=== PATIENT | male | born 1990 | race Hispanic/Latino ===

== ENCOUNTER 2016-06-01 18:44 | Emergency (ER) | payer OTHER ==
[2016-06-01 19:40] VITALS: BP 138/97; PULSE 105; RESP 16; TEMP 97.3; O2SAT 100
[2016-06-01] MEDS ORDERED: Sodium Chloride 0.9% 1,000 ML IV STA (20:14)
--- NOTE | 2016-06-01 20:23 | ED PDOC ---
Upper Extremity Pain/Injury Time Seen by Provider: 06/01/16 19:50 Chief Complaint (Nursing): Upper Extremity Problem/Injury History Per: Patient History/Exam Limitations: no limitations Onset/Duration Of Symptoms: Hrs ( prior to arrival ) Current Symptoms Are (Timing): Still Present Additional Complaint(s): Kashmir Berg is a 26 year old male, with no previous medical history, who presents to the ED with complaints of right neck pain which started prior to arrival. 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 Pt was holding the dumbbells and turned only his neck to the left. Pt reports upon turning his neck he heard a pop on the right side of his neck which caused pain to shoot up his neck and to the top of his head. Pt states at the time of the incident to experiencing chest pain, numbness to the tongue and nose, light headed and tired. Pt states symptoms lasted for one hour. Pt states symptoms are now resolved. Pt states to only feeling light headed at the moment. Pt denies any numbness, tingling, weakness or chest pain. Of note, pt states to experiencing similar symptoms in the past which diagnosed as a pinched nerve. PMD: none provided Past Medical History Reviewed: Historical Data, Nursing Documentation, Vital Signs Vital Signs: Last Vital Signs Temp 97.3 F L 06/01/16 19:35 Pulse 105 H 06/01/16 19:35 Resp 16 06/01/16 19:35 BP 138/97 H 06/01/16 19:35 Pulse Ox 100 06/01/16 19:35 - Medical History PMH: No Chronic Diseases - Family History Family History: States: Unknown Family Hx - Allergies Allergies/Adverse Reactions: Allergies Allergy/AdvReac Type Severity Reaction Status Date / Time No Known Allergies Allergy Verified 06/01/16 20:13 Review of Systems ROS Statement: Except As Marked, All Systems Reviewed And Found Negative Constitutional: Positive for: Other (tired ) Musculoskeletal: Positive for: Neck Pain (right sided radiating to the top of the head ) Neurological: Positive for: Numbness (tongue and nose ), Other (light headed) Physical Exam - Reviewed Nursing Documentation Reviewed: Yes Vital Signs Reviewed: Yes - Physical Exam Appears: Positive for: Well, Non-toxic, No Acute Distress Head Exam: Positive for: ATRAUMATIC, NORMAL INSPECTION, NORMOCEPHALIC Skin: Positive for: Normal Color, Warm, DRY Eye Exam: Positive for: Normal appearance, EOMI, PERRL. Negative for: Nystagmus ENT: Positive for: Normal ENT Inspection Neck: Positive for: Normal, Painless ROM, Supple Cardiovascular/Chest: Positive for: Regular Rate, Rhythm Respiratory: Positive for: CNT, Normal Breath Sounds Gastrointestinal/Abdominal: Positive for: Normal Exam, Bowel Sounds, Soft Back: Positive for: Normal Inspection Extremity: Positive for: Normal ROM, Capillary Refill (< 2 seconds ), Other (5/ 5 strength in all extremities. light touch senses intact to all nerver distributions in the right hand.). 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 Negative for: Motor/Sensory Deficits , Facial Droop - Laboratory Results Result Diagrams: 06/01/16 20:32 06/01/16 20:32 - ECG O2 Sat by Pulse Oximetry: 100 (RA) Pulse Ox Interpretation: Normal Medical Decision Making Medical Decision Making: Initial Impression: neck pain differentials include herniated disc, muscle sprain, carotid artery dissection Initial Plan: * CT angio head * CT angio neck * labs * IV NS 1,000 ml at 1,000 ml/hr * reevaluation EXAM: CT Angiography Neck With Intravenous Contrast. CLINICAL HISTORY: 26 years old, male; Signs and symptoms; Headache and numbness and other: Rt neck pain, light headed; Additional info: Sudden right neck shooting pain and numbness face. Sent ed physician documentation with requests TECHNIQUE: Axial computed tomographic angiography images of the neck with intravenous contrast using CT angiography protocol. This CT exam was performed using one or more of the following dose reduction techniques: automated exposure control, adjustment of the mA and/or kV according to patient size, and/or use of iterative reconstruction technique. MIP reconstructed images were created and reviewed. Coronal and sagittal reformatted images were created and reviewed. CONTRAST: 80 mL of [id number] administered intravenously. COMPARISON: No relevant prior studies available. FINDINGS: VASCULATURE: Right common carotid artery: Unremarkable. No significant stenosis. No dissection or occlusion. Right internal carotid artery: Unremarkable. Extracranial segment is patent with no significant stenosis. No dissection or occlusion. Right external carotid artery: Unremarkable. No occlusion. Right vertebral artery: Unremarkable. No significant stenosis. No dissection or occlusion. Left common carotid artery: Unremarkable. No significant stenosis. No dissection or occlusion. Left internal carotid artery: Unremarkable. Extracranial segment is patent with no significant stenosis. No dissection or occlusion. Left external carotid artery: Unremarkable. No occlusion. Left vertebral artery: Unremarkable. No significant stenosis. No dissection or occlusion. NECK: Bones/joints: No acute fracture. No dislocation. Soft tissues: Unremarkable as visualized. No mass. CAROTID STENOSIS REFERENCE USING NASCET CRITERIA: % ICA stenosis = (1 - narrowest ICA diameter/diameter of distal cervical ICA) x 100. Mild - <50% stenosis. Moderate - 50-69% stenosis. Severe - 70-94% stenosis. Near occlusion - 95-99% stenosis. Occluded - 100% stenosis. IMPRESSION: Normal neck CTA. EXAM: CT Angiography Head With Intravenous Contrast. CLINICAL HISTORY: 26 years old, male; Signs and symptoms; Headache and numbness and other: Rt neck pain, light headed; Additional info: Sudden right neck shooting pain and numbness face. Sent ed physician documentation with requests TECHNIQUE: Axial computed tomographic angiography images of the head with intravenous contrast using CT angiography protocol. MIP reconstructed images were created and reviewed. Coronal and sagittal reformatted images were created and reviewed. CONTRAST: 80 mL of administered intravenously. COMPARISON: No relevant prior studies available. FINDINGS: Right internal carotid artery: No acute findings. Intracranial segment is patent with no significant stenosis. No aneurysm. Right anterior cerebral artery: Unremarkable. No occlusion or significant stenosis. No aneurysm. Right middle cerebral artery: Unremarkable. No occlusion or significant stenosis. No aneurysm. Right posterior cerebral artery: Unremarkable. No occlusion or significant stenosis. No aneurysm. Right vertebral artery: Unremarkable as visualized. Left internal carotid artery: No acute findings. Intracranial segment is patent with no significant stenosis. No aneurysm. Left anterior cerebral artery: Unremarkable. No occlusion or significant stenosis. No aneurysm. Left middle cerebral artery: Unremarkable. No occlusion or significant stenosis. No aneurysm. Left posterior cerebral artery: Unremarkable. No occlusion or significant stenosis. No aneurysm. Left vertebral artery: Unremarkable as visualized. Basilar artery: Unremarkable. No occlusion or significant stenosis. No aneurysm. Mild mucosal thickening in the paranasal sinuses IMPRESSION: Normal head CTA. Thank you for allowing us to participate in the care of your patient. Dictated and Authenticated by: Thom Cotton MD 06/01/2016 11:15 PM Eastern Time ([place] & [place]) Scribe Attestation: Documented by Lashonda Flores, acting as a scribe for Juanita Yoo MD. Provider Scribe Attestation: All medical record entries made by the Scribe were at my direction and personally dictated by me. I have reviewed the chart and agree that the record accurately reflects my personal performance of the history, physical exam, medical decision making, and the department course for this patient. I have also personally directed, reviewed, and agree with the discharge instructions and disposition. Disposition - Clinical Impression Clinical Impression: Neck pain - Disposition Referrals: [facility] [Outside] (FOLLOW UP WITH A PRIMARY CARE PHYSICIAN IN 2-3 DAYS FOR REEVALUATION) Disposition: Routine/Home Disposition Time: 23:20 Condition: GOOD Additional Instructions: AVOID HEAVY LIFTING AND STRENUOUS ACTIVITY FOR 2-3 DAYS FOLLOW UP WITH YOUR PRIMARY CARE PHYSICIAN IN 2-3 DAYS FOR REEVALUATION Instructions: Cervical Radiculopathy (ED) Forms: [facility] ED School/Work Excuse
[2016-06-01 21:16] LABS: BASO % 0.6 % (0.0-2.0); EOS # 0.1 K/uL (0.0-0.7); EOS % 2.2 % (0.0-4.0); HEMATOCRIT 44.7 % (35.0-51.0); LYMPH # 1.5 K/uL (1.0-4.3); LYMPH % 22.6 % (20.0-40.0); MEAN CORPUSCULAR HEMOGLOBIN 32.3 pg (27.0-31.0); MEAN CORPUSCULAR HGB CONC 33.6 g/dL (33.0-37.0); MEAN PLATELET VOLUME 7.9 fl (7.2-11.7); MONO # 0.5 K/uL (0.0-0.8); MONO % 7.7 % (0.0-10.0); NEUT # 4.5 K/uL (1.8-7.0); NEUT % 66.9 % (50.0-75.0); RED CELL DISTRIBUTION WIDTH 13.3 % (11.5-14.5); WHITE BLOOD COUNT 6.7 K/uL (4.8-10.8)
[2016-06-01 21:32] LABS: BLOOD UREA NITROGEN 16 mg/dl (9-20); CALCIUM 9.9 mg/dL (8.4-10.2); CARBON DIOXIDE 24 mmol/L (22-30); CHLORIDE 104 mmol/L (98-107); GFR AFRICAN-AMERICAN > 60; GLUCOSE,RANDOM 103 mg/dL (75-110); SODIUM 144 mmol/l (132-148)
[2016-06-01] MEDS ORDERED: Iodixanol 320 MG/ML 100 ML BOTTLE IV ONE (22:17)
[2016-06-01] MEDS ORDERED: Sodium Chloride 0.9% 50 ML IV ONE (22:17)
--- NOTE | 2016-06-02 11:49 | CT ---
CTA of the neck brain dated 06/01/2016. History: Sudden onset right neck pain and numbness. Contiguous helical/transaxial sections of the neck and brain performed in standard fashion following intravenous injection of approximately 80 cc of Visipaque 320 contrast material employing CTA protocol. Additional 2 dimensional sagittal and coronal reformats provided. Radiation dose. Total DLP = 11183.90 mGy-cm Findings: The visualized common carotid arteries, carotid bifurcations and internal carotid arteries are well opacified and widely patent without evidence of occlusion, stenosis or dissection. The distal internal carotid arteries including the PE trace, cavernous and supraclinoid segments also patent without occlusion or significant stenosis. There is minor asymmetry of the A1 segments right-sided which is smaller in caliber than the left however this is likely an anatomic variation. Vertebral arteries are also pain markers asymmetry of the vertebral arteries right-sided which is much larger in caliber than the left also felt to represent an anatomic variation. No evidence of occlusion or dissection. The basilar artery is patent. The distal posterior cerebral arteries are also relatively symmetric. No evidence of large aneurysm nor vascular malformation. There are a few small nonspecific bilateral cervical lymph nodes within submental, bilateral jugulodigastric, posterior jugular chain and submandibular regions. Mild mucosal thickening noted within the ethmoid air complex extending into the frontal sinus. Asymmetry of the vallecular likely due to some residual and or retained secretion. Extension of lingual tonsil on may contribute. Few tiny calcifications seen in the a right lingual right and right inferior palatine tonsillar regions. Impression: Unremarkable CTA of the neck and brain. See above discussion for additional incidental findings.
== END 2016-06-01 23:49 | disposition home or self-care (01) ==
LOC: H.ER 18:44
DX: M54.2 Cervicalgia (principal); R20.0 Anesthesia of skin

== ENCOUNTER 2017-02-26 10:46 | Emergency (ER) | payer OTHER ==
[2017-02-26 10:56] VITALS: BMI 25.8
[2017-02-26 10:57] VITALS: BP 125/89; PULSE 122; RESP 22; TEMP 97.8; O2SAT 95
[2017-02-26] MEDS ORDERED: Sodium Chloride 0.9% 1,000 ML IV STA ×2 (11:25→14:55)
--- NOTE | 2017-02-26 11:34 | ED PDOC ---
HPI:Nausea, Vomiting, Diarrhea Time Seen by Provider: 02/26/17 11:21 Chief Complaint (Nursing): GI Problem Chief Complaint (Provider): Nausea, Vomiting, Diarrhea History Per: Patient History/Exam Limitations: no limitations Onset/Duration Of Symptoms: Days (x2) Current Symptoms Are (Timing): Still Present Additional Complaint(s): Kashmir Berg is a 27 year old male presenting to the ED for an evaluation of nausea, vomiting, and diarrhea occurring for 2 days prior to arrival. The patient reports he is unable to tolerate PO intake. He denies fever or any recent travel. PMD: None Provided Past Medical History Reviewed: Historical Data, Nursing Documentation, Vital Signs Vital Signs: Last Vital Signs Temp 97.8 F 02/26/17 10:56 Pulse 122 H 02/26/17 10:56 Resp 22 02/26/17 10:56 BP 125/89 02/26/17 10:56 Pulse Ox 95 02/26/17 10:56 - Medical History PMH: No Chronic Diseases - Surgical History Surgical History: No Surg Hx - Family History Family History: States: No Known Family Hx - Social History Alcohol: None Drugs: Denies - Allergies Allergies/Adverse Reactions: Allergies Allergy/AdvReac Type Severity Reaction Status Date / Time No Known Allergies Allergy Verified 02/26/17 11:03 Review of Systems ROS Statement: Except As Marked, All Systems Reviewed And Found Negative Constitutional: Positive for: Other (unable to tolerate PO intake). Negative for: Fever Gastrointestinal: Positive for: Nausea, Vomiting, Diarrhea Physical Exam - Reviewed Nursing Documentation Reviewed: Yes Vital Signs Reviewed: Yes - Physical Exam Appears: Positive for: Non-toxic, No Acute Distress Head Exam: Positive for: ATRAUMATIC, NORMOCEPHALIC Skin: Positive for: Normal Color, Warm, Dry Eye Exam: Positive for: Normal appearance, EOMI ENT: Positive for: Pharynx Is (mucous membranes are dry) Neck: Positive for: Normal, Painless ROM Cardiovascular/Chest: Positive for: Regular Rate, Rhythm, Chest Non Tender Respiratory: Positive for: Normal Breath Sounds. Negative for: Respiratory Distress Gastrointestinal/Abdominal: Positive for: Normal Exam, Soft. Negative for: Tenderness Back: Positive for: Normal Inspection Extremity: Positive for: Normal ROM (full ROM). Negative for: Deformity Neurologic/Psych: Positive for: Alert, Oriented (x3). Negative for: Motor/ Sensory Deficits - Laboratory Results Result Diagrams: 02/26/17 15:34 02/26/17 11:36 - ECG O2 Sat by Pulse Oximetry: 95 (RA) Pulse Ox Interpretation: Normal Medical Decision Making Medical Decision Making: Time: 11:21 Impression: Nausea, vomiting, diarrhea Plan: * CMP * CBC (with differential) * Atropine/Diphenoxylate 1 tab PO * NS 0.9% 1,000 ml IV 300 mls/hr * Zofran 4 mg IVP * Reevaluation Repeat CBC reveals elevated bands 15. Discussed with pt that bands can represent seriuous bacterial infection. Explained that blood cultures pending tomorrow and that obs in hospital is advisable as sudden manifestations of bacteremia and sepsis can be overwhelming and fatal. Pt understands and still wishes to go home. Will return immediately if he develops fever or chills or worsening abd pain, PO intolerance. Scribe Attestation: Documented by Christine Agee, acting as a scribe for Shaquille Pak MD. Provider Scribe Attestation: All medical record entries made by the Scribe were at my direction and personally dictated by me. I have reviewed the chart and agree that the record accurately reflects my personal performance of the history, physical exam, medical decision making, and the department course for this patient. I have also personally directed, reviewed, and agree with the discharge instructions and disposition. Disposition - Clinical Impression Clinical Impression: Bandemia - Patient ED Disposition Is Patient to be Admitted: No Counseled Patient/Family Regarding: Studies Performed, Diagnosis, Need For Followup, Rx Given - Disposition Referrals: [facility] [Outside] Disposition: Routine/Home Disposition Time: 16:49 Condition: FAIR Additional Instructions: Return to ED immediately if you develop fever chills vomiting or diarrhea. Instructions: Bacteremia (ED) Forms: [employer] (Sudanese)
[2017-02-26 11:43] LABS: BASO % 0.4 % (0.0-2.0); EOS # 0.1 K/uL (0.0-0.7); EOS % 2.7 % (0.0-4.0); HEMATOCRIT 47.4 % (35.0-51.0); LYMPH # 0.9 K/uL (1.0-4.3); LYMPH % 19.5 % (20.0-40.0); MEAN CELL VOLUME 93.3 fl (80.0-94.0); MEAN CORPUSCULAR HEMOGLOBIN 32.2 pg (27.0-31.0); MEAN CORPUSCULAR HGB CONC 34.5 g/dL (33.0-37.0); MEAN PLATELET VOLUME 7.8 fl (7.2-11.7); MONO % 20.6 % (0.0-10.0); NEUT # 2.7 K/uL (1.8-7.0); NEUT % 56.8 % (50.0-75.0); NRBC % 0.1 % (0.0-0.0); PLATELET COUNT 214 K/uL (130-400); RED CELL DISTRIBUTION WIDTH 12.9 % (11.5-14.5); WHITE BLOOD COUNT 4.8 K/uL (4.8-10.8)
[2017-02-26] MEDS ORDERED: Atropine-Diphenoxylate 0.025-2.5 mg Tab PO ONE (11:45)
[2017-02-26 12:02] LABS: ALKALINE PHOSPHATASE 54 U/L (38-126); ALT/SGPT 32 U/L (21-72); AST/SGOT 24 U/L (17-59); BILIRUBIN,TOTAL 0.7 mg/dl (0.2-1.3); BLOOD UREA NITROGEN 17 mg/dl (9-20); CALCIUM 9.9 mg/dL (8.4-10.2); CARBON DIOXIDE 24 mmol/L (22-30); CHLORIDE 101 mmol/L (98-107); GFR AFRICAN-AMERICAN > 60; GLUCOSE,RANDOM 118 mg/dL (75-110); SODIUM 141 mmol/l (132-148); TOTAL PROTEIN 8.9 G/DL (6.3-8.2)
[2017-02-26 12:05] LABS: ALB/GLOB RATIO 1.3 (1.0-2.1)
[2017-02-26 13:26] LABS: EOSINOPHIL 3 % (0-7); METAMYELOCYTE 1 % (0-0); MYELOCYTE 1 % (0-0); NEUTROPHIL 27 % (42-75); REACTIVE LYMPHOCYTES 9 % (0-0); TOTAL CELLS COUNTED 100
[2017-02-26 15:40] LABS: BASO % 0.5 % (0.0-2.0); EOS # 0.1 K/uL (0.0-0.7); EOS % 2.9 % (0.0-4.0); HEMATOCRIT 45.6 % (35.0-51.0); LYMPH # 1.2 K/uL (1.0-4.3); LYMPH % 26.8 % (20.0-40.0); MEAN CELL VOLUME 94.6 fl (80.0-94.0); MEAN CORPUSCULAR HEMOGLOBIN 31.7 pg (27.0-31.0); MEAN CORPUSCULAR HGB CONC 33.5 g/dL (33.0-37.0); MEAN PLATELET VOLUME 7.6 fl (7.2-11.7); MONO # 0.9 K/uL (0.0-0.8); MONO % 18.5 % (0.0-10.0); NEUT # 2.4 K/uL (1.8-7.0); NEUT % 51.3 % (50.0-75.0); NRBC % 0.1 % (0.0-0.0); RED CELL DISTRIBUTION WIDTH 12.9 % (11.5-14.5); WHITE BLOOD COUNT 4.6 K/uL (4.8-10.8)
[2017-02-26 15:48] LABS: VENOUS BLOOD GAS BASE EXCESS 0.3 mmol/L (0.0-2.0); VENOUS BLOOD GAS PCO2 48 mmHg (40-60); VENOUS BLOOD PH 7.35 (7.32-7.43)
== END 2017-02-26 15:58 | disposition home or self-care (01) ==
LOC: H.ER 10:46
DX: D72.825 Bandemia (principal)
CPT/HCPCS: 80053; 82803; 85025; 87040; 96361; 96374; 99283; J2405; J7040